=== PATIENT | male | born 1970 | race Caucasian/White ===

== ENCOUNTER 2019-03-19 20:42 | Emergency (ER) | payer OTHER ==
[2019-03-19] MEDS ORDERED: Diphtheria,Pertussis(Acell),Tetanus Vaccine 0.5 ML SDV IM ONE (21:34)
[2019-03-19] MEDS ORDERED: Bacitracin Oint 1 GM U/D Packet TOP ONE (21:34)
--- NOTE | 2019-03-19 21:40 | EDM.PDOC ---
ED HPI GENERAL MEDICAL PROBLEM - General Chief Complaint: Laceration Stated Complaint: CUT LEFT ANKLE Time Seen by Provider: 03/19/19 21:25 Source of Information: Reports: Patient History Limitations: Reports: No Limitations - History of Present Illness INITIAL COMMENTS - FREE TEXT/NARRATIVE: 48 yo male here with a L mars laceration from a filet knife. He is due for a tetanus booster. Bleeding controlled on arrival. 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) - Related Data Allergies Allergy/AdvReac Type Severity Reaction Status Date / Time No Known Allergies Allergy Verified 03/19/19 21:09 Home Meds: Home Meds NK [No Known Home Meds] 03/19/19 [History] Past Medical History - Past Surgical History Other HEENT Surgeries/Procedures: lipoma removed from neck Social & Family History - Tobacco Use Smoking Status *Q: Never Smoker - Caffeine Use Caffeine Use: Reports: Coffee, Soda, Tea Caffeine Use Comment: daily coffee, occasional soda, daily tea - Alcohol Use Days Per Week of Alcohol Use: 4 Number of Drinks Per Day: 2 Total Drinks Per Week: 8 - Recreational Drug Use Recreational Drug Use: No ED ROS GENERAL - Review of Systems Review Of Systems: See Below Constitutional: Reports: No Symptoms Musculoskeletal: Reports: No Symptoms Skin: Reports: Wound Neurological: Reports: No Symptoms ED EXAM, SKIN/RASH Exam: See Below General Appearance: Alert, WD/WN, No Apparent Distress Extremities: Normal Inspection, Normal Range of Motion, Non-Tender, No Pedal Edema, Other (painless ROM). No: Pedal Edema, Limited Range of Motion Neurological: Alert, Oriented, CN II-XII Intact, Normal Cognition, No Motor/ Sensory Deficits Psychiatric: Normal Affect, Normal Mood Skin: Warm, Dry, Normal Color, No Rash, Wound/Incision (2 less than 1 cm lacerations to the distal L leg. Wound edges well approximated. No active bleeding. No FB's. CMS intact distally. ) Location, Skin: Lower Extremity, Left Characteristics: Linear Associated features: No: Warmth, Tenderness, Swelling, Induration, Lymphangitis , Inflammation Course - Vital Signs Text/Narrative:: Wounds cleaned and dressed per nursing. Last Recorded V/S: Last Vital Signs Temp 35.9 C 03/19/19 21:09 Pulse 72 03/19/19 21:09 Resp 16 03/19/19 21:09 BP 136/86 03/19/19 21:09 Pulse Ox 95 03/19/19 21:09 - Orders/Labs/Meds Orders: Active Orders 24 hr Category Date Time Status Vaccines to be Administered [RC] PER UNIT ROUTINE Care 03/19/19 21:34 Ordered Bacitracin [Bacitracin Oint 1 GM] Med 03/19/19 21:34 Once 1 dose TOP ONETIME ONE Diphth,Pertuss(Acell),Tet Vac [Adacel] Med 03/19/19 21:34 Once 0.5 ml IM .ONCE ONE Medication Orders Bacitracin (Bacitracin Oint 1 Gm) 1 dose TOP ONETIME ONE Stop: 03/19/19 21:35 Diphtheria/Tetanus/Acell Pertussis (Adacel) 0.5 ml IM .ONCE ONE Stop: 03/19/19 21:35 Meds: Medications Generic Name Dose Route Start Last Admin Trade Name Freq PRN Reason Stop Dose Admin Bacitracin 1 dose 03/19/19 21:34 Bacitracin Oint 1 Gm TOP 03/19/19 21:35 ONETIME ONE Diphtheria/Tetanus/Acell Pertussis 0.5 ml 03/19/19 21:34 Adacel IM 03/19/19 21:35 .ONCE ONE Departure - Departure Time of Disposition: 21:50 Disposition: Home, Self-Care 01 Condition: Good Clinical Impression: Leg laceration Qualifiers: Encounter type: initial encounter Laterality: left Qualified Code(s): S81.812A - Laceration without foreign body, left lower leg, initial encounter - Discharge Information *PRESCRIPTION DRUG MONITORING PROGRAM REVIEWED*: No *COPY OF PRESCRIPTION DRUG MONITORING REPORT IN PATIENT NIKKY: No Instructions: Laceration Care, Adult Referrals: PCP,None [Primary Care Provider] - Additional Instructions: Keep wounds clean for 3 days. Clean wounds twice daily with soap and water, dry , and apply antibiotic ointment. Recheck for signs of infection. - My Orders Last 24 Hours: My Active Orders 03/19/19 21:34 Vaccines to be Administered [RC] PER UNIT ROUTINE Bacitracin [Bacitracin Oint 1 GM] 1 dose TOP ONETIME ONE Diphth,Pertuss(Acell),Tet Vac [Adacel] 0.5 ml IM .ONCE ONE - Assessment/Plan Last 24 Hours: My Active Orders 03/19/19 21:34 Vaccines to be Administered [RC] PER UNIT ROUTINE Bacitracin [Bacitracin Oint 1 GM] 1 dose TOP ONETIME ONE Diphth,Pertuss(Acell),Tet Vac [Adacel] 0.5 ml IM .ONCE ONE
== END 2019-03-19 21:47 | disposition home or self-care (01) ==
LOC: JP.ED 20:42
DX: S81.812A Laceration without foreign body, left lower leg, initial encounter (principal); Z23 Encounter for immunization; W26.0XXA Contact with knife, initial encounter
CPT/HCPCS: 90471; 90715; 99282